=== PATIENT | male | born 1985 | race Caucasian/White ===

== ENCOUNTER 2017-10-08 09:45 | Emergency (ER) | payer MEDICAID, OTHER ==
[~2017-10-08] VITALS: Ht 175.3 cm; Wt 116.0 kg
[2017-10-08 11:08] LABS: BASOPHILS % 0.9 % (0.0-2.0); EOSINOPHILS % 1.6 % (0.0-5.0); HEMATOCRIT. 47.2 % (42.0-52.0); HEMOGLOBIN. 16.4 g/dL (14.0-18.0); LYMPHOCYTES % 25.8 % (20.0-50.0); MEAN CORPUSCULAR VOLUME 86.3 fL (80.0-94.0); MEAN PLATELET VOLUME 7.6 fl (7.4-10.4); MONOCYTES % 5.7 % (2.0-8.0); PLATELET 298 x1000/uL (130-400); RED BLOOD CELL COUNT 5.47 mill/uL (4.7-6.1); RED CELL DISTRIBUTION WIDTH 13.7 % (11.6-14.6)
[2017-10-08 11:16] LABS: CHLORIDE 106 mEq/L (98-107)
[2017-10-08 11:28] LABS: D-DIMER 0.2 mg/L FEU (<0.50)
[2017-10-08] MEDS ORDERED: DICYCLOMINE 10 MG/5 ML ORAL SYR PO STA (12:04)
[2017-10-08] MEDS ORDERED: MAGNESIUM/ALUMINUM HYDROXIDE/SIMETHICONE 30ML UDC PO STA (12:04)
[2017-10-08] MEDS ORDERED: VISCOUS LIDOCAINE 2% 15 ML UDC PO STA (12:04)
[2017-10-08 12:24] VITALS: BP 112/61
== END 2017-10-08 12:27 | disposition home or self-care (01) ==
LOC: ER 10:33
DX: R07.89 Other chest pain (principal); R03.0 Elevated blood-pressure reading, without diagnosis of hypertension
CPT/HCPCS: 36415; 71045; 80053; 83880; 84484; 85025; 85379; 85610; 93005; 99284; Z7610

== ENCOUNTER 2017-12-19 03:19 | Emergency (ER) | payer OTHER ==
[~2017-12-19] VITALS: Ht 167.6 cm; Wt 81.0 kg
[2017-12-19] MEDS ORDERED: FAMOTIDINE 20MG/2ML VIAL IV STA (03:44)
[2017-12-19] MEDS ORDERED: MORPHINE SULFATE 4 MG/ML CPJ (NOT FOR IM USE) IV STA (03:44)
[2017-12-19] MEDS ORDERED: SODIUM CHLORIDE 0.9% 1,000 ML IV ONE (03:44)
[2017-12-19 04:10] LABS: BASOPHILS % 0.8 % (0.0-2.0); EOSINOPHILS % 2.9 % (0.0-5.0); HEMATOCRIT. 47.2 % (42.0-52.0); HEMOGLOBIN. 16.2 g/dL (14.0-18.0); LYMPHOCYTES % 42.9 % (20.0-50.0); MEAN CORPUSCULAR HEMOGLOBIN 29.9 pg (28.0-32.0); MEAN PLATELET VOLUME 7.9 fl (7.4-10.4); MONOCYTES % 6.4 % (2.0-8.0); PLATELET 310 x1000/uL (130-400); RED BLOOD CELL COUNT 5.42 mill/uL (4.7-6.1); RED CELL DISTRIBUTION WIDTH 13.5 % (11.6-14.6)
[2017-12-19 04:21] LABS: CHLORIDE 105 mEq/L (98-107); CLARITY URINE CLEAR (CLEAR); COLOR URINE YELLOW (YELLOW); KETONES URINE NEGATIVE (NEGATIVE); LEUKOCYTE ESTERASE URINE NEGATIVE (NEGATIVE); NITRITE URINE NEGATIVE (NEGATIVE); OCCULT BLOOD URINE NEGATIVE (NEGATIVE); PH URINE 7.5 (4.5-8.0); PROTEIN URINE NEGATIVE (NEGATIVE); SPECIFIC GRAVITY URINE 1.017 (1.005-1.030)
[2017-12-19 06:25] VITALS: BP 124/75
== END 2017-12-19 06:25 | disposition home or self-care (01) ==
LOC: ER 03:19
DX: K29.70 Gastritis, unspecified, without bleeding (principal); R03.0 Elevated blood-pressure reading, without diagnosis of hypertension
CPT/HCPCS: 36415; 74176; 80053; 81003; 83690; 85025; 96361; 96374; 96375; 99285; J2270; J3490; J7030

== ENCOUNTER 2019-01-01 01:26 | Emergency (ER) | payer MEDICAID, OTHER ==
[~2019-01-01] VITALS: Ht 175.3 cm; Wt 98.0 kg
[2019-01-01] MEDS ORDERED: METOCLOPRAMIDE HCL 10MG/2ML VIAL IV STA (01:50)
[2019-01-01] MEDS ORDERED: VISCOUS LIDOCAINE 2% 15 ML UDC PO STA (01:50)
[2019-01-01] MEDS ORDERED: SODIUM CHLORIDE 0.9% 1,000 ML IV ONE (01:50)
[2019-01-01] MEDS ORDERED: MAGNESIUM/ALUMINUM HYDROXIDE/SIMETHICONE 30ML UDC PO STA (01:50)
[2019-01-01 02:19] LABS: HEMATOCRIT. 49.4 % (42.0-52.0); HEMOGLOBIN. 17.3 g/dL (14.0-18.0); LYMPHOCYTES % 21.9 % (20.0-50.0); MEAN CORPUSCULAR HEMOGLOBIN 30.7 pg (28.0-32.0); MEAN CORPUSCULAR VOLUME 87.7 fL (80.0-94.0); MEAN PLATELET VOLUME 7.9 fl (7.4-10.4); MONOCYTES % 4.6 % (2.0-8.0); NEUTROPHILS % 70.5 % (40.0-76.0); PLATELET 302 x1000/uL (130-400); RED BLOOD CELL COUNT 5.64 mill/uL (4.7-6.1); RED CELL DISTRIBUTION WIDTH 13.5 % (11.6-14.6)
[2019-01-01 02:20] LABS: CHLORIDE 105 mEq/L (98-107)
[2019-01-01 02:34] LABS: CLARITY URINE TURBID (CLEAR); COLOR URINE YELLOW (YELLOW); KETONES URINE NEGATIVE (NEGATIVE); LEUKOCYTE ESTERASE URINE NEGATIVE (NEGATIVE); NITRITE URINE NEGATIVE (NEGATIVE); OCCULT BLOOD URINE NEGATIVE (NEGATIVE); PROTEIN URINE NEGATIVE (NEGATIVE); SPECIFIC GRAVITY URINE 1.018 (1.005-1.030)
[2019-01-01] MEDS ORDERED: KETOROLAC 30MG/ML VIAL IV NR (04:00)
[2019-01-01] MEDS: MORPHINE SULFATE 2 MG/ML CPJ (NOT FOR IM USE) IV NR ×3 (04:16→06:00)
[2019-01-01] MEDS ORDERED: HYDROMORPHONE HCL/PF 2MG/ML CPJ IV ONE (06:00)
[2019-01-01] MEDS ORDERED: OMEPRAZOLE 20MG CAPSULE EXTENDED RELEASE PO ONE (06:15)
[2019-01-01 10:39] VITALS: BP 141/83
== END 2019-01-01 10:43 | disposition home or self-care (01) ==
LOC: ER 01:45
DX: K21.9 Gastro-esophageal reflux disease without esophagitis (principal); N50.819 Testicular pain, unspecified
CPT/HCPCS: 36415; 74176; 76870; 80053; 81003; 83690; 85025; 93005; 93976; 96374; 96375; 99284; J1170; J1885; J2270; J2765; J7030